=== PATIENT | male | born 1995 | race African-American/Black ===

== ENCOUNTER 2023-07-19 22:33 | Inpatient (IN) | payer OTHER ==
[~2023-07-19] VITALS: Ht 170.2 cm; Wt 80.2 kg
[2023-07-19 23:30] LABS: HEMATOCRIT 48.2 % (42.0-52.0); HEMOGLOBIN 16.3 g/dl (13.5-17.5); MEAN CORPUSCULAR HEMOGLOBIN 28.8 pg (27.0-33.0); MEAN CORPUSCULAR HGB CONC 33.8 g/dl (32.0-36.5); MEAN CORPUSCULAR VOLUME 85.2 fl (80.0-96.0); PLATELET COUNT, AUTOMATED 271 10^3/uL (150-450); RED BLOOD COUNT 5.66 10^6/uL (4.30-6.10); WHITE BLOOD COUNT 6.4 10^3/uL (4.0-10.0)
[2023-07-20 00:04] LABS: ETHYL ALCOHOL (ETHANOL) 0.112 % (0.000-0.010)
[2023-07-20 00:06] LABS: ALBUMIN 4.8 G/DL (3.2-5.2); ALKALINE PHOSPHATASE 53 U/L (46-116); ALT/SGPT 16 U/L (7.0-40); AST/SGOT 12 U/L (<34); BILIRUBIN,DIRECT 0.1 MG/DL (<0.4); BILIRUBIN,TOTAL 0.5 MG/DL (0.3-1.2); BLOOD UREA NITROGEN 10 MG/DL (9-23); CALCIUM LEVEL 9.9 MG/DL (8.5-10.1); CARBON DIOXIDE LEVEL 24 MMOL/L (20-31); CHLORIDE LEVEL 106 MMOL/L (98-107); CREATININE FOR GFR 0.82 MG/DL (0.70-1.30); GLOMERULAR FILTRATION RATE > 60.0 (>60); GLUCOSE, FASTING 127 MG/DL (60-100); SALICYLATE LEVEL < 3.0 MG/DL (<30); SODIUM LEVEL 138 MMOL/L (136-145); TOTAL PROTEIN 8.4 G/DL (5.7-8.2)
[2023-07-20 03:03] LABS: AMPHETAMINES LEVEL URINE NEGATIVE (NEGATIVE); BARBITURATES URINE NEGATIVE (NEGATIVE); COCAINE METABOLITE URINE NEGATIVE (NEGATIVE); METHADONE URINE NEGATIVE (NEGATIVE); OPIATES URINE NEGATIVE (NEGATIVE); PHENCYCLIDINE URINE NEGATIVE (NEGATIVE)
[2023-07-20 03:04] LABS: BENZODIAZEPINES URINE NEGATIVE (NEGATIVE); CANNABINOIDS URINE POSITIVE (NEGATIVE)
[2023-07-20] MEDS ORDERED: D 50CAP2 PO (07:57)
[2023-07-20] MEDS ORDERED: HOME MED LIST COMPLETE! XX SCH (10:25)
[2023-07-20] MEDS ORDERED: traZODone 50 MG TAB PO PRN (14:25)
[2023-07-20] MEDS ORDERED: MAALOX 30 ML SUSP *UDC PO PRN (14:25)
[2023-07-20] MEDS ORDERED: diphenhydrAMINE 25MG CAP PO PRN (14:25)
[2023-07-20] MEDS ORDERED: MOM 30ML SUSPENSION UDC PO PRN (14:25)
[2023-07-20] MEDS ORDERED: ACETAMINOPHEN TAB 650MG DOSE (2X325MG) PO PRN (14:25)
[2023-07-20] MEDS ORDERED: IBUPROFEN 400MG TAB PO PRN (14:25)
[2023-07-20 15:45] VITALS: BP 153/96; TEMP 97.2; O2SAT 99
[2023-07-21 06:35] VITALS: BP 147/74; TEMP 97.8; O2SAT 99
[2023-07-21] MEDS: VITAMIN D 1,000 INTERNATIONAL UNITS TABLET PO SCH (13:52)
[2023-07-21 16:37] VITALS: BP 141/85; TEMP 98.4; O2SAT 100
[2023-07-22 06:23] VITALS: BP 148/80; TEMP 98; O2SAT 100
[2023-07-22] MEDS: VITAMIN D 1,000 INTERNATIONAL UNITS TABLET PO SCH (09:42)
== END 2023-07-22 10:12 | disposition home or self-care (01) | DRG 885 ==
LOC: M ED 22:33 → M ED INP 07-20 14:25 → M PSY 07-20 15:40
PROVIDERS: ADMIT Student in an Organized Health Care Education/Training Program; ATTEND Student in an Organized Health Care Education/Training Program
DX: F39 Unspecified mood [affective] disorder (principal); R45.850 Homicidal ideations; F41.9 Anxiety disorder, unspecified; F17.210 Nicotine dependence, cigarettes, uncomplicated; R03.0 Elevated blood-pressure reading, without diagnosis of hypertension; Z88.6 Allergy status to analgesic agent; Z88.8 Allergy status to other drugs, medicaments and biological substances; Z20.822 Contact with and (suspected) exposure to COVID-19; Z91.82 Personal history of military deployment

== ENCOUNTER 2023-09-12 15:05 | Emergency (ER) | payer OTHER ==
[~2023-09-12] VITALS: Ht 172.7 cm; Wt 79.4 kg
[~2023-09-12 15:05] MED LIST: D 50CAP2 PO
[2023-09-12] MEDS ORDERED: TIZA2CAP PO (15:34)
[2023-09-12 16:28] LABS: APPEARANCE, URINE HAZY (CLEAR); BACTERIA, URINE AUTO NEGATIVE (NEGATIVE); BILIRUBIN, URINE AUTO NEGATIVE (NEGATIVE); BLOOD, URINE BLOOD NEGATIVE (NEGATIVE); COLOR, URINE YELLOW (YELLOW); GLUCOSE, URINE (UA) AUTO NEGATIVE (NEGATIVE); KETONE, URINE AUTO NEGATIVE (NEGATIVE); LEUKOCYTE ESTERASE, URINE AUTO NEGATIVE (NEGATIVE); NITRITE, URINE AUTO NEGATIVE (NEGATIVE); PROTEIN, URINE AUTO NEGATIVE (NEGATIVE); RBC, URINE AUTO 0 /HPF (0-3); SPECIFIC GRAVITY URINE AUTO 1.002 (1.002-1.035); SQUAMOUS EPITHELIAL CELL UR AU 0 /HPF (0-6); UROBILINOGEN, URINE AUTO 0.2 mg/dL (0.0-2.0); WBC, URINE AUTO 0 /HPF (0-3)
[2023-09-12] MEDS: KETOROLAC 60MG 2ML VIAL IM ONE (18:00)
[2023-09-12] MEDS: CYCLOBENZAPRINE 10MG TABLET PO ONE (18:12)
[2023-09-12] MEDS ORDERED: BACL10TA2 PO (20:40)
[2023-09-12 20:46] VITALS: BP 135/87; TEMP 98.4; O2SAT 100
== END 2023-09-12 20:51 | disposition home or self-care (01) ==
LOC: M ED 15:05
DX: S16.1XXA Strain of muscle, fascia and tendon at neck level, initial encounter (principal); M54.50 Low back pain, unspecified; M25.552 Pain in left hip; V49.40XA Driver injured in collision with unspecified motor vehicles in traffic accident, initial encounter; Y92.9 Unspecified place or not applicable; Y93.9 Activity, unspecified; Y99.9 Unspecified external cause status; I10 Essential (primary) hypertension; F32.9 Major depressive disorder, single episode, unspecified; K58.9 Irritable bowel syndrome, unspecified; Z87.891 Personal history of nicotine dependence; Z88.8 Allergy status to other drugs, medicaments and biological substances

== ENCOUNTER 2024-04-12 08:43 | Emergency (ER) | payer OTHER ==
[~2024-04-12] VITALS: Ht 172.7 cm; Wt 83.0 kg
[~2024-04-12 08:43] MED LIST changes: +BACL10TA2 PO; +TIZA2CAP PO
[2024-04-12 08:46] VITALS: BP 157/99; TEMP 97.6; O2SAT 100
== END 2024-04-12 10:34 | disposition left against medical advice (07) ==
LOC: M ED 08:43
DX: Z53.21 Procedure and treatment not carried out due to patient leaving prior to being seen by health care provider (principal)

== ENCOUNTER → 2024-04-20 | Outpatient (CLI) | payer OTHER | LOC: M CARPUL 11:00 | PROVIDERS: ATTEND Physician Assistant | DX: R06.02 Shortness of breath (principal) ==